=== PATIENT | female | born 1945 | race Caucasian/White ===

== ENCOUNTER 2022-02-28 14:55 | Outpatient (CLI) | payer MEDICARE, BC, SELFPAY ==
[2022-02-28 17:00] LABS: Chloride* 102 mmol/L (96-114); Sodium* 139 mmol/L (135-149)
[2022-02-28 17:01] LABS: Potassium* 4.1 mmol/L (3.6-5.1)
[2022-02-28 17:03] LABS: Creatinine* 0.7 mg/dL (0.5-1.5); Estimated Glomerular Filt Rate 90 ml/min
[2022-02-28 17:04] LABS: Blood Urea Nitrogen* 18 mg/dL (7-30); Calcium* 9.5 mg/dL (8.4-10.6); Carbon Dioxide* 29 mmol/L (20-32); Glucose* 75 mg/dL (60-115)
== END 2022-02-28 14:56 | disposition home or self-care (01) ==
LOC: NFLDREF 14:57
PROVIDERS: PCP Family Medicine; Visit Provider Family Medicine
DX: Z01.818 Encounter for other preprocedural examination (principal)
CPT/HCPCS: 80048

== ENCOUNTER 2022-03-02 06:07 | Day surgery (SDC) | payer MEDICARE, BC, SELFPAY ==
[2022-03-02 06:29] VITALS: BMI 21.7
[2022-03-02] MEDS: KETOROLAC OPHTH 0.5% 1 DROP EYE-RIGHT ×2 (06:31→06:36)
[2022-03-02] MEDS: TETRACAINE 0.5% OPHTH 1 DROP EYE-RIGHT ×2 (06:33→06:37)
[2022-03-02] MEDS: SODIUM CHLORIDE 0.9 % (FLUSH) 10 ML SYRINGE IVF (06:35)
[2022-03-02 06:41] VITALS: BP 171/76; PULSE 69; RESP 18; TEMP 36.7; O2SAT 98
--- NOTE | 2022-03-02 07:17 | SUR.PREOP ---
visualized patient's home covid test, results negative.
[2022-03-02] MEDS: BALANCED SALT IRRIG SOLN 15 ML EYE-RIGHT (07:24)
[2022-03-02] MEDS: TETRACAINE 0.5% OPHTH 2 DROP EYE-RIGHT (07:24)
--- NOTE | 2022-03-02 07:27 | SUR.PREOP ---
The eye drops brought by the patient (Ketorolac and Prednisolone) are examined and I have determined they are labeled by the patient's pharmacy for this patient as prescribed by the surgeon. The bottles are intact, recently obtained and appear to be correct.
--- NOTE | 2022-03-02 07:28 | W.ANESCHARGE ---
Anesthesia Charges Start Date/Time Anesthesia Start Date: 03/02/22 Anesthesia Start Time: 07:13 Stop Date/Time Anesthesia Stop Date: 03/02/22 Anesthesia Stop Time: 07:55 Summary Emergency: No Extremes of Age: Over 70-CPT 43205
[2022-03-02 07:52] VITALS: BP 158/73; PULSE 63; RESP 18; TEMP 36.4; O2SAT 98
--- NOTE | 2022-03-03 08:06 | W.PM.OPTPROC ---
Procedure Note Date of procedure: 03/02/22 Will [facility] bill your pro fee for this procedure?: Yes Procedure Description: SURGEON: Heather Purdy MD PREOPERATIVE DIAGNOSIS: Nuclear sclerotic cataract, right eye. POSTOPERATIVE DIAGNOSIS: Nuclear sclerotic cataract, right eye. NAME OF OPERATION: Phacoemulsification of cataract with posterior chamber intraocular lens implantation in the right eye. ANESTHESIA: Topical. ESTIMATED BLOOD LOSS: Less than 2 cc. COMPLICATIONS: None. PATHOLOGY SPECIMEN: None. INDICATIONS: See consult note for details. The risks, benefits and alternatives of the procedure were explained to the patient, who elected to proceed and signed informed consent to do so. PROCEDURE: The patient was brought to the pre-holding area where the right eye was identified as the operative eye. I placed my initials above this eye. The patient received eye drops consisting of 0.5% tetracaine, 1% tropicamide, 10% phenylephrine, and 0.5% ketorolac. The patient was then brought to the operating room where the right eye was again identified as the operative eye. The eye was prepped with Betadine and draped in the usual sterile ophthalmic fashion. A #15 super-sharp blade was used to create a paracentesis site. 1% non-preserved intracameral lidocaine was injected into the anterior chamber. Endocoat was injected into the anterior chamber. A 2.4 mm keratome was used to create a three-plane self-sealing incision 1 mm anterior to the temporal limbus. A cystotome was used to create an anterior capsular leaflet. The Utrata forceps were used to extend this to form a continuous curvilinear capsulorrhexis. Hydrodissection was performed. The cataract was removed with phacoemulsification using the [id number] technique. The irrigation and aspiration tip was used to remove the remaining cortex. Healon was injected into the capsular bag. An JAMIL ZCB00 intraocular lens of 21.0 diopters was injected into the capsular bag. The irrigation and aspiration tip was used to remove the remaining viscoelastic. Balanced salt solution on a cannula was used to hydrate the wound, and the wound was found to be watertight. The pupil was noted to be round. DISPOSITION: The patient was taken to the recovery room and discharged to home in stable condition. The patient was instructed to call me or go to the emergency department with any sudden change, including dramatic loss of vision, severe pain in the eye or eyebrow region, nausea, or vomiting. The patient will follow up in the clinic tomorrow morning. Surgeon: Heather Purdy MD
== END 2022-03-02 08:22 | disposition home or self-care (01) ==
PROVIDERS: PCP Family Medicine; Visit Provider Ophthalmology
PROC: (CPT 66984; principal; 2022-03-02 06:15)
DX: H25.11 Age-related nuclear cataract, right eye (principal)
CPT/HCPCS: 66984; 00142; 99100; A9270; J2250; J3010; V2632

== ENCOUNTER 2022-03-23 06:02 | Day surgery (SDC) | payer MEDICARE, BC, SELFPAY ==
[2022-03-23] MEDS: TETRACAINE 0.5% OPHTH 1 DROP EYE-LEFT ×2 (06:15→06:20)
[2022-03-23] MEDS: KETOROLAC OPHTH 0.5% 1 DROP EYE-LEFT ×2 (06:15→06:20)
[2022-03-23 06:23] VITALS: BP 149/74; PULSE 64; RESP 16; TEMP 36.6; O2SAT 97
[2022-03-23 06:25] VITALS: BMI 21.7
[2022-03-23] MEDS: SODIUM CHLORIDE 0.9 % (FLUSH) 10 ML SYRINGE IVF (06:30)
[2022-03-23] MEDS: TETRACAINE 0.5% OPHTH 2 DROP EYE-LEFT (07:20)
[2022-03-23] MEDS: BALANCED SALT IRRIG SOLN 15 ML EYE-LEFT (07:24)
--- NOTE | 2022-03-23 07:40 | W.ANESCHARGE ---
Anesthesia Charges Start Date/Time Anesthesia Start Date: 03/23/22 Anesthesia Start Time: 07:15 Stop Date/Time Anesthesia Stop Date: 03/23/22 Anesthesia Stop Time: 07:50 Summary Emergency: No Extremes of Age: Over 70-CPT 85040
[2022-03-23 07:47] VITALS: BP 146/75; PULSE 61; RESP 16; TEMP 36.8; O2SAT 99
--- NOTE | 2022-03-23 08:20 | W.ANESCHARGE ---
Anesthesia Charges Start Date/Time Anesthesia Start Date: 03/23/22 Anesthesia Start Time: 07:15 Stop Date/Time Anesthesia Stop Date: 03/23/22 Anesthesia Stop Time: 07:50 Summary Emergency: No Extremes of Age: Over 70-CPT 42763
--- NOTE | 2022-03-23 08:38 | W.PM.OPTPROC ---
Procedure Note Date of procedure: 03/23/22 Will [facility] bill your pro fee for this procedure?: Yes Procedure Description: SURGEON: Heather Purdy MD PREOPERATIVE DIAGNOSIS: Nuclear sclerotic cataract, left eye. POSTOPERATIVE DIAGNOSIS: Nuclear sclerotic cataract, left eye. NAME OF OPERATION: Phacoemulsification of cataract with posterior chamber intraocular lens implantation in the left eye. ANESTHESIA: Topical. ESTIMATED BLOOD LOSS: Less than 2 cc. COMPLICATIONS: None. PATHOLOGY SPECIMEN: None. INDICATIONS: See consult note for details. The risks, benefits and alternatives of the procedure were explained to the patient, who elected to proceed and signed informed consent to do so. PROCEDURE: The patient was brought to the pre-holding area where the left eye was identified as the operative eye. I placed my initials above this eye. The patient received eye drops consisting of 0.5% tetracaine, 1% tropicamide, 10% phenylephrine, and 0.5% ketorolac. The patient was then brought to the operating room where the left eye was again identified as the operative eye. The eye was prepped with Betadine and draped in the usual sterile ophthalmic fashion. A #15 super-sharp blade was used to create a paracentesis site. 1% non-preserved intracameral lidocaine was injected into the anterior chamber. Endocoat was injected into the anterior chamber. A 2.4 mm keratome was used to create a three-plane self-sealing incision 1 mm anterior to the temporal limbus. A cystotome was used to create an anterior capsular leaflet. The Utrata forceps were used to extend this to form a continuous curvilinear capsulorrhexis. Hydrodissection was performed. The cataract was removed with phacoemulsification using the [id number] technique. The irrigation and aspiration tip was used to remove the remaining cortex. Healon was injected into the capsular bag. An JAMIL ZCB00 intraocular lens of 21.0 diopters was injected into the capsular bag. The irrigation and aspiration tip was used to remove the remaining viscoelastic. Balanced salt solution on a cannula was used to hydrate the wound, and the wound was found to be watertight. The pupil was noted to be round. DISPOSITION: The patient was taken to the recovery room and discharged to home in stable condition. The patient was instructed to call me or go to the emergency department with any sudden change, including dramatic loss of vision, severe pain in the eye or eyebrow region, nausea, or vomiting. The patient will follow up in the clinic tomorrow morning. Surgeon: Heather Purdy MD
--- NOTE | 2022-03-23 08:52 | SUR.PREOP ---
HOME COVID ANTIGEN TEST NEGATIVE DONE 03/22/22.
== END 2022-03-23 08:23 | disposition home or self-care (01) ==
PROVIDERS: PCP Family Medicine; Visit Provider Ophthalmology
PROC: (CPT 66984; principal; 2022-03-23 06:15)
DX: H25.12 Age-related nuclear cataract, left eye (principal)
CPT/HCPCS: 66984; 00142; 99100; A9270; J2250; J3010; V2632

== ENCOUNTER 2022-06-09 13:42 | Emergency (ER) | payer MEDICARE, BC, SELFPAY ==
[2022-06-09] VITALS (10 sets, daily range): BP systolic 144–202; BP diastolic 70–101; PULSE 72–94; RESP 20; TEMP 36.7; O2SAT 93–100; BMI 22.7
--- NOTE | 2022-06-09 14:30 | ED_ITS ---
HPI - General Adult General Date Seen: 06/09/22 Chief complaint: Skin/Abscess/Foreign Body Stated complaint: Burning rash on chest Time Seen by Provider: 06/09/22 14:02 Source: patient and family Mode of arrival: ambulatory Limitations: no limitations History of Present Illness HPI narrative: Patient is a 77-year-old here with her daughter for evaluation of possible allergic reaction. She received an infusion of Orencia 2 days ago for rheumatoid arthritis. Today, she had onset of redness diffusely, shakiness, confusion, some sharp pain underneath her armpit on the left, tightness in her chest. She feels that earlier she had a rash although now she just has redness in her chest, and some on her legs. She has not had facial swelling or difficulty swallowing. She did take Benadryl at home. She talk to her pastry wrapper to advised coming to the ER for evaluation. She has not had any gastrointestinal symptoms. Related Data Home Medications Medication Instructions Recorded Confirmed albuterol sulfate 90 mcg/actuation 2 puff inhalation Q4-6H PRN 02/28/22 03/23/22 aerosol inhaler amlodipine 5 mg tablet 5 mg PO DAILY 02/28/22 03/23/22 ascorbic acid (vitamin C) 500 mg 500 mg PO QDAY 02/28/22 03/23/22 tablet barley life PO 02/28/22 bisoprolol fumarate 5 mg tablet 5 mg PO QDAY 02/28/22 03/23/22 calcium carbonate 600 mg calcium 600 mg PO QHS 02/28/22 03/23/22 (1,500 mg) tablet cholecalciferol (vitamin D3) 10 2,000 unit PO DAILY 02/28/22 03/23/22 mcg/mL (400 unit/mL) oral drops fluticasone propionate 50 1 intranasal PRN 02/28/22 02/28/22 mcg/actuation nasal spray,suspension folic acid 1 mg tablet 2 mg PO DAILY 02/28/22 03/23/22 levothyroxine 50 mcg capsule 50 mcg PO QDAY 02/28/22 03/23/22 lisinopril 10 mg tablet 10 mg PO DAILY 02/28/22 03/23/22 methotrexate sodium 2.5 mg tablet 20 mg PO QWEEK 02/28/22 03/23/22 multivitamin (Multiple Vitamins 1 tab PO QDAY 02/28/22 03/23/22 tablet) omeprazole 20 mg capsule,delayed 20 mg PO DAILY PRN 02/28/22 03/23/22 release probiotic PO 02/28/22 valacyclovir 500 mg tablet 500 mg PO QDAY 02/28/22 03/23/22 vitamin K2 PO .QD 02/28/22 02/28/22 zinc gluconate 50 mg tablet 50 mg PO QDAY 02/28/22 03/23/22 Allergies Allergy/AdvReac Type Severity Reaction Status Date / Time Penicillins Allergy Severe throat Verified 06/09/22 13:46 swelling codeine Allergy Intermediate Vomiting Verified 06/09/22 13:46 Review of Systems Status of ROS: Reports: 10 or more systems reviewed and unremarkable except as noted in History and below [facility] Medical History COVID-19 virus infection Loose total arthroplasty of both knees Surgical History H/O shoulder surgery History of hemicolectomy Hx of section Social History Smoking Status: Never smoker Do you use any of these nicotine containing products: None How often do you have a drink containing alcohol: never AUDIT-C Alcohol total score: 0 Non-prescribed substance use: denies use Caffeine: Yes Are you using contraception or practicing any form of control: No Exam Narrative: Exam Narrative: Vital signs as noted above. In general, an alert, nontoxic elderly woman. She is tremulous. Head: Normocephalic, atraumatic. Eyes: Pupils are equal reactive. Extraocular movements are full. Conjunctivae are normal. ENT: Mucous membranes are moist. Throat is normal. No edema. No intraoral lesions. Neck: Supple without lymphadenopathy. No stridor. No masses. Heart: Regular rate and rhythm. No murmur or rub. Lungs: Clear bilaterally. No increased work of breathing, crackles or wheezes. Abdomen: Soft and nontender. No organomegaly. Extremities: Well perfused. No edema. No calf tenderness. Pulses intact. Neurologic: Patient is alert and oriented to person and place. Speech is fluent. Face is symmetric. Moves all extremities equally. Affect: Anxious. Skin: Warm and dry. Well perfused. She has mild flushing noted on her chest and neck. Her daughter feels that her legs are more erythematous than usual, they do not appear significantly erythematous to me. I do not see any rash consistent with hives, or other dermatitis. Const: Vital Signs, click to edit/add: Vital Signs - 24 hr 06/09/22 13:46 06/09/22 14:22 06/09/22 14:50 Temperature 98.1 F Pulse Rate 72 Pulse Rate [Pulse Oximeter] 94 Respiratory Rate 20 Blood Pressure 157/84 H Blood Pressure [Ri ght Upper Arm] 202/101 H Pulse Oximetry 98 100 100 Oxygen Delivery Me thod Room Air 06/09/22 15:00 06/09/22 15:23 06/09/22 15:24 Temperature Pulse Rate 79 75 Pulse Rate [Pulse Oximeter] Respiratory Rate Blood Pressure 159/70 H Blood Pressure [Ri ght Upper Arm] Pulse Oximetry 99 98 Oxygen Delivery Me thod 06/09/22 15:30 06/09/22 15:45 06/09/22 16:00 Temperature Pulse Rate 77 75 78 Pulse Rate [Pulse Oximeter] Respiratory Rate Blood Pressure Blood Pressure [Ri ght Upper Arm] Pulse Oximetry 99 97 93 Oxygen Delivery Me thod 06/09/22 16:08 Temperature Pulse Rate 80 Pulse Rate [Pulse Oximeter] Respiratory Rate Blood Pressure 144/75 H Blood Pressure [Ri ght Upper Arm] Pulse Oximetry 98 Oxygen Delivery Me thod Documenting provider has reviewed patient's vital signs: yes Course Course Hospital Course: Patient is markedly hypertensive, she is complaining of some pain underneath her left armpit. Will go ahead and get an EKG and troponin to evaluate for any cardiac abnormalities. She is not showing any evidence of airway, breathing or circulatory compromise to suggest an anaphylactic reaction. I am going to give her a little prednisone as perhaps that will help with would ever type of reaction this is. In reviewing the drug insert on Orencia, these are all noted side effects of the drug, and likely this will simply require observation. I am going to just double check her thyroid and make sure that this is not related to hyperthyroidism. I am going to give her a little Ativan and see if that helps with her feelings of shakiness. She feels significantly better after Ativan, shakiness is resolved and she is looking much more comfortable. Her labs are largely unremarkable. Her TSH was a little bit high actually, but her free T4 was normal. Certainly no evidence of hyperthyroidism. White count was normal, hemoglobin was 13.7. EKG by my review was normal. No evidence of acute ischemia. Troponin was 0. Metabolic panel was normal, CRP was less than 0.5. I do think that her symptoms are related to side effects from the Orencia although again she does not seem to be showing symptoms of overt anaphylaxis. She does take low-dose prednisone but I am going to put her on a 40 mg dose for a few days, discussed with her I do not know how much that will be helpful, but I do not think it will hurt, and it may help somewhat with her symptoms. She had questions as to how long she should expect these symptoms to last, and I do not know exactly, I have asked her to call her pastry wrapper as she probably has more experience with this drug and length of time that side effects would be expected to last. Also, she should talk to her pastry wrapper about alternative medicines since she does not want to use this 1 again. This is her 2nd time, she did not have significant problems the 1st time but is not willing to use this drug again given her experience this time. Return at any time to the ER for significant worsening, angioedema, difficulty breathing, etc.. She can also use an antihistamine such as Zyrtec or Benadryl for any recurrent flushing or itching. Vital Signs Vital signs: Initial Vital Signs Temperature 98.1 F 06/09/22 13:46 Temperature Source Temporal Artery Scan 06/09/22 13:46 Pulse Rate 94 06/09/22 13:46 Pulse Rhythm 06/09/22 13:46 Pulse Strength 3+ Normal 06/09/22 13:46 Respiratory Rate 20 06/09/22 13:46 Blood Pressure 202/101 H 06/09/22 13:46 Blood Pressure Mean 134 06/09/22 13:46 Blood Pressure Position Supine 06/09/22 13:46 Pulse Oximetry 98 06/09/22 13:46 Oxygen Delivery Method 06/09/22 13:46 Vital Signs Temperature 98.1 F 06/09/22 13:46 Pulse Rate 94 06/09/22 13:46 Respiratory Rate 20 06/09/22 13:46 Blood Pressure 202/101 H 06/09/22 13:46 Pulse Oximetry 98 06/09/22 13:46 Oxygen Delivery Method 06/09/22 13:46 Temperature 98.1 F 06/09/22 13:46 Pulse Rate 80 06/09/22 16:08 Respiratory Rate 20 06/09/22 13:46 Blood Pressure 144/75 H 06/09/22 16:08 Pulse Oximetry 98 06/09/22 16:08 Oxygen Delivery Method 06/09/22 13:46 Medical Decision Making Lab Data Labs: Lab Results 06/09/22 06/09/22 06/09/22 Range/Units 14:22 14:22 14:22 WBC 10.02 (4.50-11.00) K/uL RBC 3.86 L (4.00-5.20) m/uL Hgb 13.7 (12.0-16.0) gm/dL Hct 39.8 (33.0-51.0) % MCV 103 H (80-100) fL MCH 36 H (26-34) pg MCHC 34 (32-36) gm/dL RDW Coeff of Shakira 12.9 (11.5-15.5) % Plt Count 242 (140-440) K/uL Neut % (Auto) 58.0 (42.0-72.0) % Lymph % (Auto) 30.8 (20-44) % [place] % (Auto) 9.3 (0.0-11.0) % Eos % (Auto) 1.1 (0.0-7.0) % Baso % (Auto) 0.1 (0.0-3.0) % Neut # (Auto) 5.81 (1.7-7.0) K/uL Lymph # (Auto) 3.09 H (0.90-2.90) K/uL [place] # (Auto) 0.90 (0.00-0.90) K/UL Eos # (Auto) 0.11 (0.00-0.50) K/uL Baso # (Auto) 0.01 (0.00-0.30) K/uL ESR 9 (2-20) mm/hr Sodium 136 (135-149) mmol/L Potassium 3.5 L (3.6-5.1) mmol/L Chloride 101 (96-114) mmol/L Carbon Dioxide 26 (20-32) mmol/L BUN 19 (7-30) mg/dL Creatinine 0.7 (0.5-1.5) mg/dL Estimated Creat Clear 35.42 Estimated GFR 89 ml/min Glucose 93 (60-115) mg/dL Calcium 9.8 (8.4-10.6) mg/dL C-Reactive Protein (0.5-1.0) mg/dL TSH (0.270-4.200) uIU/mL Free T4 (0.70-1.85) ng/dL POC Troponin I (0.01-0.04) ng/ml 06/09/22 06/09/22 06/09/22 Range/Units 14:22 14:22 14:22 WBC (4.50-11.00) K/uL RBC (4.00-5.20) m/uL Hgb (12.0-16.0) gm/dL Hct (33.0-51.0) % MCV (80-100) fL MCH (26-34) pg MCHC (32-36) gm/dL RDW Coeff of Shakira (11.5-15.5) % Plt Count (140-440) K/uL Neut % (Auto) (42.0-72.0) % Lymph % (Auto) (20-44) % [place] % (Auto) (0.0-11.0) % Eos % (Auto) (0.0-7.0) % Baso % (Auto) (0.0-3.0) % Neut # (Auto) (1.7-7.0) K/uL Lymph # (Auto) (0.90-2.90) K/uL [place] # (Auto) (0.00-0.90) K/UL Eos # (Auto) (0.00-0.50) K/uL Baso # (Auto) (0.00-0.30) K/uL ESR (2-20) mm/hr Sodium (135-149) mmol/L Potassium (3.6-5.1) mmol/L Chloride (96-114) mmol/L Carbon Dioxide (20-32) mmol/L BUN (7-30) mg/dL Creatinine (0.5-1.5) mg/dL Estimated Creat Clear Estimated GFR ml/min Glucose (60-115) mg/dL Calcium (8.4-10.6) mg/dL C-Reactive Protein < 0.5 L (0.5-1.0) mg/dL TSH 9.950 H (0.270-4.200) uIU/mL Free T4 (0.70-1.85) ng/dL POC Troponin I 0.01 (0.01-0.04) ng/ml 06/09/22 Range/Units 14:22 WBC (4.50-11.00) K/uL RBC (4.00-5.20) m/uL Hgb (12.0-16.0) gm/dL Hct (33.0-51.0) % MCV (80-100) fL MCH (26-34) pg MCHC (32-36) gm/dL RDW Coeff of Shakira (11.5-15.5) % Plt Count (140-440) K/uL Neut % (Auto) (42.0-72.0) % Lymph % (Auto) (20-44) % [place] % (Auto) (0.0-11.0) % Eos % (Auto) (0.0-7.0) % Baso % (Auto) (0.0-3.0) % Neut # (Auto) (1.7-7.0) K/uL Lymph # (Auto) (0.90-2.90) K/uL [place] # (Auto) (0.00-0.90) K/UL Eos # (Auto) (0.00-0.50) K/uL Baso # (Auto) (0.00-0.30) K/uL ESR (2-20) mm/hr Sodium (135-149) mmol/L Potassium (3.6-5.1) mmol/L Chloride (96-114) mmol/L Carbon Dioxide (20-32) mmol/L BUN (7-30) mg/dL Creatinine (0.5-1.5) mg/dL Estimated Creat Clear Estimated GFR ml/min Glucose (60-115) mg/dL Calcium (8.4-10.6) mg/dL C-Reactive Protein (0.5-1.0) mg/dL TSH (0.270-4.200) uIU/mL Free T4 1.27 (0.70-1.85) ng/dL POC Troponin I (0.01-0.04) ng/ml Discharge Plan Discharge Clinical Impression: Medication adverse effect Patient Disposition: Home, Self-Care Condition: Improved Instructions: Adverse Drug Reaction (ED) Additional Instructions: Prednisone as prescribed, you can take this instead of your usual dose for the next 5 days, and then switch back to usual dose. Talk to your pastry wrapper about what to expect from these symptoms given that they are likely adverse effects from the Orencia. Discussed alternative medications with your pastry wrapper. Return at any time for acute worsening, difficulty breathing, facial or oral swelling. Prescriptions: No Action cholecalciferol (vitamin D3) 10 mcg/mL (400 unit/mL) drops 2,000 unit PO DAILY fluticasone propionate 50 mcg/actuation spray,suspension 1 intranasal PRN folic acid 1 mg tablet 2 mg PO DAILY lisinopril 10 mg tablet 10 mg PO DAILY levothyroxine 50 mcg capsule 50 mcg PO QDAY methotrexate sodium 2.5 mg tablet 20 mg PO QWEEK Label Comments: Take 8 Tablets (20 mg) by mouth once every week. amlodipine 5 mg tablet 5 mg PO DAILY multivitamin [Multiple Vitamins] Tablet 1 tab PO QDAY bisoprolol fumarate 5 mg tablet 5 mg PO QDAY omeprazole 20 mg capsule,delayed release(DR/EC) 20 mg PO DAILY PRN calcium carbonate 600 mg calcium (1,500 mg) tablet 600 mg PO QHS albuterol sulfate 90 mcg/actuation HFA aerosol inhaler 2 puff inhalation Q4-6H PRN valacyclovir 500 mg tablet 500 mg PO QDAY vitamin K2 PO .QD barley life PO zinc gluconate 50 mg tablet 50 mg PO QDAY ascorbic acid (vitamin C) 500 mg tablet 500 mg PO QDAY probiotic PO Follow Up/Referrals: Christiano Nur MD [Staff Physician] - Stand Alone Forms: [employer] Info Instructions
[2022-06-09 14:41] LABS: Troponin, Point-of-Care* 0.01 ng/ml (0.01-0.04)
[2022-06-09] MEDS: LORazepam 2 MG/ML inj 0.5 MG IVP (14:42)
[2022-06-09] MEDS: predniSONE 20 MG TABLET 60 MG PO (14:42)
[2022-06-09 14:57] LABS: Basophils Absolute Auto 0.01 K/uL (0.00-0.30); Basophils Percent Auto 0.1 % (0.0-3.0); Eosinophils Absolute Auto 0.11 K/uL (0.00-0.50); Eosinophils Percent Auto 1.1 % (0.0-7.0); Hematocrit 39.8 % (33.0-51.0); Hemoglobin* 13.7 gm/dL (12.0-16.0); Immature Granulocytes Abs Auto 0.07 K/uL (0.00-0.30); Immature Granulocytes Pct Auto 0.7 %; Lymphocytes Absolute Auto 3.09 K/uL (0.90-2.90); Lymphocytes Percent Auto 30.8 % (20-44); Mean Corpuscular HGB Conc 34 gm/dL (32-36); Mean Corpuscular Hemoglobin 36 pg (26-34); Mean Corpuscular Volume 103 fL (80-100); Monocytes Percent Auto 9.3 % (0.0-11.0); Neutrophils Absolute Auto 5.81 K/uL (1.7-7.0); Platelet Count* 242 K/uL (140-440); RDW Coefficient of Variation % 12.9 % (11.5-15.5); Red Blood Count 3.86 m/uL (4.00-5.20); White Blood Count* 10.02 K/uL (4.50-11.00)
[2022-06-09 14:58] LABS: Chloride* 101 mmol/L (96-114); Potassium* 3.5 mmol/L (3.6-5.1); Sodium* 136 mmol/L (135-149)
[2022-06-09 15:01] LABS: Blood Urea Nitrogen* 19 mg/dL (7-30); Carbon Dioxide* 26 mmol/L (20-32); Creatinine* 0.7 mg/dL (0.5-1.5); Est. Creatinine Clearance* 35.42; Estimated Glomerular Filt Rate 89 ml/min; Glucose* 93 mg/dL (60-115)
[2022-06-09 15:02] LABS: Calcium* 9.8 mg/dL (8.4-10.6)
[2022-06-09 15:06] LABS: C Reactive Protein* < 0.5 mg/dL (0.5-1.0); Slide Review Reflex No
[2022-06-09 15:44] LABS: Erythrocyte SedimentationRate* 9 mm/hr (2-20)
[2022-06-09 16:03] LABS: Free T4 Free Thyroxine* 1.27 ng/dL (0.70-1.85)
== END 2022-06-09 16:19 | disposition home or self-care (01) ==
PROVIDERS: Emergency Provider Emergency Medicine
DX: R21 Rash and other nonspecific skin eruption (principal); T39.4X5A Adverse effect of antirheumatics, not elsewhere classified, initial encounter
CPT/HCPCS: 36415; 80048; 84439; 84443; 84484; 85025; 85651; 86140; 93005; 94761; 99283; 99284; J2060; J7512

== ENCOUNTER 2024-07-25 11:00 | Outpatient (RCR) | payer MEDICARE, BC, SELFPAY | END 2024-07-26 12:46 | disposition home or self-care (01) | PROVIDERS: Visit Provider Orthopaedic Surgery | DX: Z48.89 Encounter for other specified surgical aftercare (principal); Z51.89 Encounter for other specified aftercare | CPT/HCPCS: 97110; 97112; 97161 ==